=== PATIENT | female | born 1975 | race Caucasian/White ===

== ENCOUNTER 2016-12-05 11:54 | Emergency (ER) | payer OTHER ==
[~2016-12-05] VITALS: Ht 160 cm; Wt 9.9 kg
[~2016-12-05 11:54] MED LIST: FLUO20CA38 PO; GABA100C14 PO; QUET100T32 PO
[2016-12-05 11:57] VITALS: Ht 160 cm; Wt 9.9 kg
--- NOTE | 2016-12-05 14:22 | ERD ---
ER Documentation Chief Complaint Date/Time DATE: 12/05/16 TIME: 14:15 Chief Complaint FLU X 1 WEEK HPI 41-year-old female with a history of depression and anxiety presents to the emergency department for a one-week history of productive cough with phlegm as well as bilateral eye drainage and discharge. Patient states that when she wakes up in the morning she experiences crusting of bilateral eyes but denies any blurry vision. Patient states she has been out in the cold recently. Patient denies fever, vomiting, nausea, diarrhea, abdominal pain, headache, dizziness shortness of breath, or chest pain. ROS All systems reviewed and are negative except as per history of present illness. Medications Home Meds Reported Medications Quetiapine Fumarate* (Quetiapine Fumarate*) 100 Mg Tablet, 100 MG PO HS, TAB 03/28/16 Gabapentin* (Gabapentin*) 100 Mg Capsule, 100 MG PO BID, #90 CAP 03/28/16 Fluoxetine Hcl* (Prozac*) 20 Mg Capsule, 60 MG PO DAILY, CAP 03/28/16 Allergies Allergies: Coded Allergies: No Known Drug Allergies (Verified Allergy, Mild, 09/24/15) PMhx/Soc History of Surgery: Yes (c/section x2) Anesthesia Reaction: No Hx Neurological Disorder: No Hx Respiratory Disorders: No Hx Cardiac Disorders: No Hx Psychiatric Problems: Yes (depression, anxiety) Hx Miscellaneous Medical Probl: Yes (INSOMNIA) Hx Alcohol Use: No Hx Substance Use: No Hx Tobacco Use: No Physical Exam Vitals Vital Signs Date Time Temp Pulse Resp B/P Pulse Ox O2 Delivery O2 Flow Rate FiO2 12/05/16 11:57 99.2 99 18 139/67 90 Physical Exam Const: Well-developed, well-nourished, in no acute distress Head: Atraumatic Eyes: Normal Conjunctiva ENT: Normal External Ears, Nose and Mouth. Oropharynx clear without evidence of erythema or tonsillar swelling with exudate Neck: Full range of motion..~ No meningismus. Resp: Clear to auscultation bilaterally. No wheezes, rhonchi, rales Cardio: Regular rate and rhythm, no murmurs Abd: Soft, non tender, non distended. Normal bowel sounds Skin: No petechiae or rashes Back: No midline or flank tenderness Ext: No cyanosis, or edema Neur: Awake and alert Psych: Normal Mood and Affect Procedures/MDM 41-year-old female with history of anxiety and depression presents the emergency department with 1 week long history of productive cough, congestion, and bilateral eye discharge and crusting. Patient nontoxic-appearing, alert, afebrile, normotensive, and well-appearing during exam. The patient's clinical presentation is very consistent with an acute viral syndrome. The patient does not exhibit any clinical signs or symptoms concerning for serious bacterial infection or systemic illness. Based on history and clinical exam findings the patient does not appear to have evidence of pneumonia, strep pharyngitis, urinary tract infection, bacteremia, sepsis, or meningitis. For these reasons I do not believe it is necessary to obtain laboratory testing or diagnostic imaging. I believe it would be appropriate for symptom control, and close outpatient primary care follow-up. Based on patient's history of present illness and physical examination the decision was made to discharge. The patient was re-evaluated after ED treatment and stabilizing measures, and symptoms have improved. There is no evidence of life threatening injuries or illnesses at this time. On re-examination, patient resting in no distress, stable vital signs, reports feeling better and safe for discharge with outpatient follow up with PMD in 1-2 days. Patient given return precautions. Departure Diagnosis: Primary Impression: Influenza-like symptoms Additional Impressions: Bronchitis Cough Eye discharge SHELIA ROSS PA-C Dec 05, 2016 14:22
[2016-12-05] MEDS ORDERED: POLY10DR19 BOTH EYES (14:24)
[2016-12-05] MEDS ORDERED: AZIT250T94 PO (14:24)
[2016-12-05] MEDS ORDERED: IBUP-1542 PO (14:24)
[2016-12-05] MEDS ORDERED: D-ME473S18 PO (14:24)
== END 2016-12-05 14:28 | disposition home or self-care (01) ==
LOC: E/R 11:54
DX: R05 Cough (principal); R09.81 Nasal congestion; J20.9 Acute bronchitis, unspecified; F41.9 Anxiety disorder, unspecified; H57.8 Other specified disorders of eye and adnexa
CPT/HCPCS: 99284

== ENCOUNTER 2017-03-14 21:19 | Emergency (ER) | payer OTHER ==
[~2017-03-14] VITALS: Ht 165.1 cm; Wt 105.5 kg
[~2017-03-14 21:19] MED LIST changes: +AZIT250T94 PO; +D-ME473S18 PO; +IBUP-1542 PO; +POLY10DR19 BOTH EYES
[2017-03-14 21:25] VITALS: Ht 165.1 cm; Wt 105.5 kg
--- NOTE | 2017-03-14 21:45 | ERD ---
ER Documentation Chief Complaint Date/Time DATE: 03/14/17 TIME: 21:44 Chief Complaint NEEDS PROZAC REFILL HPI This is a 41-year-old female who presents to the emergency room for evaluation of a medication refill. The patient states that she takes Prozac 20 mg 3 times daily and states that she has been out of it for 3 days. She denies any homicidal or suicidal ideation came to the ER for evaluation. She states that she cannot get into her clinic and time and when she normally does not have her medications she begins to behave bizarrely. ROS All systems reviewed and are negative except as per history of present illness. Medications Home Meds Active Scripts Azithromycin* (Zithromax*) 250 Mg Tablet, 250 MG PO .MelissaPACK DIRECTED, #6 TAB TAKE 500 MG (2 TABS) THE FIRST DAY THEN 250 MG (1 TAB) DAYS 2-5 Prov:SHELIA ROSS PA-C 12/05/16 Polymyxin B Sulfate-TMP* (Polymyxin B-TMP Eye Drops*) 10 Ml Drops, 1 DROP BOTH EYES TID for 7 Days, EA Prov:SHELIA ROSS PA-C 12/05/16 Ibuprofen* (Ibuprofen*) 600 Mg Tablet, 600 MG PO Q6 for 7 Days, TAB Prov:SHELIA ROSS PA-C 12/05/16 Dextromethorphan Hb-Promethazine Hcl (Promethazine DM Syrup) 473 Ml Syrup, 5 ML PO Q6H Y for COUGH, #4 OZ Prov:SHELIA ROSS PA-C 12/05/16 Reported Medications Quetiapine Fumarate* (Quetiapine Fumarate*) 100 Mg Tablet, 100 MG PO HS, TAB 03/28/16 Gabapentin* (Gabapentin*) 100 Mg Capsule, 100 MG PO BID, #90 CAP 03/28/16 Fluoxetine Hcl* (Prozac*) 20 Mg Capsule, 60 MG PO DAILY, CAP 03/28/16 Allergies Allergies: Coded Allergies: No Known Drug Allergies (Verified Allergy, Mild, 09/24/15) PMhx/Soc History of Surgery: Yes (c/section x2) Anesthesia Reaction: No Hx Neurological Disorder: No Hx Respiratory Disorders: No Hx Cardiac Disorders: No Hx Psychiatric Problems: Yes (depression, anxiety) Hx Miscellaneous Medical Probl: Yes (INSOMNIA) Hx Alcohol Use: No Hx Substance Use: No Hx Tobacco Use: No Physical Exam Vitals Vital Signs Date Time Temp Pulse Resp B/P Pulse Ox O2 Delivery O2 Flow Rate FiO2 03/14/17 21:25 98.6 85 20 180/101 99 Physical Exam Const: Disheveled appearance Head: Atraumatic Eyes: Normal Conjunctiva ENT: Normal External Ears, Nose and Mouth. Neck: Full range of motion..~ No meningismus. Resp: Clear to auscultation bilaterally Cardio: Regular rate and rhythm, no murmurs Abd: Soft, non tender, non distended. Normal bowel sounds Skin: No petechiae or rashes Back: No midline or flank tenderness Ext: No cyanosis, or edema Neur: Awake and alert Psych: Normal Mood and Affect Procedures/MDM This 41-year-old female presents to the ER for medication refill of her Prozac. The patient denies any homicidal suicidal ideation. When I evaluated her the patient was hypertensive however she is denying headache, blurred vision, chest pain, shortness of breath numbness or tingling. The patient was given a prescription for Prozac 20 mg 3 times daily for 1 month. I advised her to follow-up with her primary care for further evaluation and she verbalized understanding. Departure Diagnosis: Primary Impression: Asymptomatic hypertension Additional Impression: Encounter for medication refill Condition: Stable REJI LOCO DO Mar 14, 2017 21:45
[2017-03-14] MEDS ORDERED: FLUO20CA38 PO (21:46)
[2017-03-14 22:01] VITALS: BP 143/101; PULSE 72; RESP 20; TEMP 98.2
== END 2017-03-14 22:02 | disposition home or self-care (01) ==
LOC: E/R 21:19
DX: I10 Essential (primary) hypertension (principal)
CPT/HCPCS: 99281

== ENCOUNTER 2017-05-24 16:06 | Emergency (ER) | payer OTHER ==
[~2017-05-24] VITALS: Ht 152.4 cm; Wt 101.0 kg
[2017-05-24 16:10] VITALS: Ht 152.4 cm; Wt 101.0 kg
[2017-05-24] MEDS ORDERED: GABA100C14 PO (17:09)
[2017-05-24] MEDS ORDERED: FLUO20CA38 PO (17:09)
--- NOTE | 2017-05-24 17:14 | ERA ---
ER Documentation Chief Complaint Date/Time DATE: 05/24/17 TIME: 17:11 Chief Complaint REFILL OF PROZAC, GABAPENTIN HPI 41-year-old female presented with a chief complaint of presenting requesting refill on medication of Prozac 20 mg twice daily and gabapentin unknown. Review of patient's charts revealed Prozac 20 mg twice daily and gabapentin 100 mg 3 times daily. Patient has had no adverse reactions with the medications. States that her next appointment with her PCP is an 1 month. Patient is also stated that she comes here "all the time" for refill on medications. No other complaints at this time. Describes no other associated manifestations. Nursing notes have been reviewed and are consistent with history given. ROS All systems reviewed and are negative except as per history of present illness. Medications Home Meds Active Scripts Fluoxetine Hcl* (Prozac*) 20 Mg Capsule, 20 MG PO DAILY for 10 Days, CAP Prov:NADEEN MARTINEZ PA-C 05/24/17 Gabapentin* (Gabapentin*) 100 Mg Capsule, 100 MG PO TID for 10 Days, #30 CAP Prov:NADEEN MARTINEZ PA-C 05/24/17 Fluoxetine Hcl* (Prozac*) 20 Mg Capsule, 20 MG PO BID for 30 Days, CAP Prov:REJI LOCO DO 03/14/17 Azithromycin* (Zithromax*) 250 Mg Tablet, 250 MG PO .MOOCK DIRECTED, #6 TAB TAKE 500 MG (2 TABS) THE FIRST DAY THEN 250 MG (1 TAB) DAYS 2-5 Prov:SHELIA ROSS PA-C 12/05/16 Polymyxin B Sulfate-TMP* (Polymyxin B-TMP Eye Drops*) 10 Ml Drops, 1 DROP BOTH EYES TID for 7 Days, EA Prov:SHELIA ROSS PA-C 12/05/16 Ibuprofen* (Ibuprofen*) 600 Mg Tablet, 600 MG PO Q6 for 7 Days, TAB Prov:SHELIA ROSS PA-C 12/05/16 Dextromethorphan Hb-Promethazine Hcl (Promethazine DM Syrup) 473 Ml Syrup, 5 ML PO Q6H Y for COUGH, #4 OZ Prov:SHELIA ROSS PA-C 12/05/16 Reported Medications Quetiapine Fumarate* (Quetiapine Fumarate*) 100 Mg Tablet, 100 MG PO HS, TAB 03/28/16 Gabapentin* (Gabapentin*) 100 Mg Capsule, 100 MG PO BID, #90 CAP 03/28/16 Fluoxetine Hcl* (Prozac*) 20 Mg Capsule, 60 MG PO DAILY, CAP 03/28/16 Allergies Allergies: Coded Allergies: No Known Drug Allergies (Verified Allergy, Mild, 09/24/15) PMhx/Soc History of Surgery: Yes (c/section x2) Anesthesia Reaction: No Hx Neurological Disorder: No Hx Respiratory Disorders: No Hx Cardiac Disorders: No Hx Psychiatric Problems: Yes (depression, anxiety) Hx Miscellaneous Medical Probl: Yes (INSOMNIA) Hx Alcohol Use: No Hx Substance Use: No Hx Tobacco Use: No Smoking Status: Never smoker Physical Exam Vitals Vital Signs Date Time Temp Pulse Resp B/P Pulse Ox O2 Delivery O2 Flow Rate FiO2 05/24/17 16:10 98.4 90 18 135/69 99 Physical Exam Const: Morbidly obese 41-year-old female in no acute distress Head: Atraumatic Eyes: Normal Conjunctiva ENT: Normal External Ears, Nose and Mouth. Neck: Full range of motion..~ No meningismus. Resp: Clear to auscultation bilaterally Cardio: Regular rate and rhythm, no murmurs Abd: Soft, non tender, non distended. Normal bowel sounds Skin: No petechiae or rashes Back: No midline or flank tenderness Ext: No cyanosis, or edema Neur: Awake and alert Psych: Normal Mood and Affect Procedures/MDM 41-year-old female presenting with a chief complaint of with a request for medication refill. Patient is taking Prozac 20 mg twice daily and gabapentin 100 mg 3 times daily. Patient will be given 10 days worth of prescriptions with advised to go to PCP for refill on medications. I expect that the patient that this is not the function of the emergency department. She has verbally acknowledged but also has responded that she comes here "all the time" for refill on medications. I have given the patient a list of community clinics that she may go to for chronic management of conditions. I have spoke with the patient regarding their condition and future management. They have verbally responded that they understand their status and treatment plan. The patients vitals are stable, and their current condition is appropriate for discharge. The patient will be given discharge instructions with return precautions. Departure Diagnosis: Primary Impression: Encounter for medication refill Condition: Stable Patient Instructions: Taking Medicine Safely Referrals: [facility] YOU HAVE RECEIVED A MEDICAL SCREENING EXAM AND THE RESULTS INDICATE THAT YOU DO NOT HAVE A CONDITION THAT REQUIRES URGENT TREATMENT IN THE EMERGENCY DEPARTMENT. FURTHER EVALUATION AND TREATMENT OF YOUR CONDITION CAN WAIT UNTIL YOU ARE SEEN IN YOUR DOCTORS OFFICE WITHIN THE NEXT 1-2 DAYS. IT IS YOUR RESPONSIBILITY TO MAKE AN APPOINTMENT FOR FOLOW-UP CARE. IF YOU HAVE A PRIMARY DOCTOR --you should call your primary doctor and schedule an appointment IF YOU DO NOT HAVE A PRIMARY DOCTOR YOU CAN CALL OUR PHYSICIAN REFERRAL HOTLINE AT IF YOU CAN NOT AFFORD TO SEE A PHYSICIAN YOU CAN CHOSE FROM THE FOLLOWING [facility] [address] [facility]. [facility] [address] [facility]. [facility] [address] [facility] [address] [facility] [address] [facility]. [facility]. [address] [facility] () Usted se del rio hecho un examen mdico de control que le indica que no est en coco condicin que requiera tratamiento urgente en el Departamento de Emergencia. Un estudio ms profundo y el tratamiento de barrera condicin pueden esperar sin ningn riesgo hasta que usted sea atendida/o en el consultorio de barrera mdico o coco cl fanny. Es responsabilidad suya arreglar coco shima para el seguimiento del dawson. MANEJO DE CONDICIONES NO URGENTES EN EL FUTURO 1) Si usted tiene un mdico de atencin primaria: Usted debera llamar a barrera mdico de atencin primaria antes de venir al departamento de emergencia. Despus de las horas de consultorio, barrera doctor o barrera asociado/a est disponible por telfono. El mdico o enfermero de dom en el servicio telefnico puede asesorarle por kwesi medio para atender el problema, o dawson contrario se puede programar coco shima. 2) Si usted no tiene un mdico de atencin primaria: Llame al mdico o clnica de referencia que aparece abajo linda las horas de consultorio para hacer coco shima para que le vean. CLINICAS: [facility] [phone] [address] [facility]., [facility] [phone] [address] [facility]. [facility] [phone] [address] [facility] [phone] [address] [facility] [facility] [phone] [address] [facility]. [phone] [address] Additional Instructions: Go to PCP for medication refill. Symptoms worsen or change return to the emergency department immediately. If adverse reactions arise discontinue medications and return to the emergency department immediately. Take medications as prescribed. NADEEN MARTINEZ PA-C May 24, 2017 17:13
== END 2017-05-24 17:20 | disposition home or self-care (01) ==
LOC: FTE 16:06
DX: Z76.0 Encounter for issue of repeat prescription (principal)
CPT/HCPCS: 99281

== ENCOUNTER 2017-06-27 01:49 | Emergency (ER) | payer OTHER ==
[~2017-06-27] VITALS: Ht 167.6 cm; Wt 98.5 kg
[2017-06-27 01:56] VITALS: Ht 167.6 cm; Wt 98.5 kg
[2017-06-27] MEDS ORDERED: FLUO20CA38 PO (02:56)
[2017-06-27] MEDS ORDERED: GABA300C16 PO (02:56)
--- NOTE | 2017-06-27 02:58 | ERD ---
ER Documentation Chief Complaint Date/Time DATE: 06/27/17 TIME: 02:58 Chief Complaint medication refill- prozac, gabapentin HPI Patient is here requesting medication refill on gabapentin as well as Prozac. She has no suicidal homicidal ideations. She has no other complaints. ROS All systems reviewed and are negative except as per history of present illness. Medications Home Meds Active Scripts Fluoxetine Hcl* (Prozac*) 20 Mg Capsule, 60 MG PO DAILY for 30 Days, CAP Prov:ABENA TRUJILLO PA-C 06/27/17 Gabapentin* (Gabapentin*) 300 Mg Capsule, 300 MG PO QHS, #30 CAP Prov:ABENA TRUJILLO PA-C 06/27/17 Fluoxetine Hcl* (Prozac*) 20 Mg Capsule, 20 MG PO DAILY for 10 Days, CAP Prov:NADEEN MARTINEZ PA-C 05/24/17 Gabapentin* (Gabapentin*) 100 Mg Capsule, 100 MG PO TID for 10 Days, #30 CAP Prov:NADEEN MARTINEZ PA-C 05/24/17 Fluoxetine Hcl* (Prozac*) 20 Mg Capsule, 20 MG PO BID for 30 Days, CAP Prov:REJI LOCO DO 03/14/17 Azithromycin* (Zithromax*) 250 Mg Tablet, 250 MG PO .GANESH DIRECTED, #6 TAB TAKE 500 MG (2 TABS) THE FIRST DAY THEN 250 MG (1 TAB) DAYS 2-5 Prov:SHELIA ROSS PA-C 12/05/16 Polymyxin B Sulfate-TMP* (Polymyxin B-TMP Eye Drops*) 10 Ml Drops, 1 DROP BOTH EYES TID for 7 Days, EA Prov:SHELIA ROSS PA-C 12/05/16 Ibuprofen* (Ibuprofen*) 600 Mg Tablet, 600 MG PO Q6 for 7 Days, TAB Prov:SHELIA ROSS PA-C 12/05/16 Dextromethorphan Hb-Promethazine Hcl (Promethazine DM Syrup) 473 Ml Syrup, 5 ML PO Q6H Y for COUGH, #4 OZ Prov:SHELIA ROSS PA-C 12/05/16 Reported Medications Quetiapine Fumarate* (Quetiapine Fumarate*) 100 Mg Tablet, 100 MG PO HS, TAB 03/28/16 Gabapentin* (Gabapentin*) 100 Mg Capsule, 100 MG PO BID, #90 CAP 03/28/16 Fluoxetine Hcl* (Prozac*) 20 Mg Capsule, 60 MG PO DAILY, CAP 03/28/16 Allergies Allergies: Coded Allergies: No Known Drug Allergies (Verified Allergy, Mild, 09/24/15) PMhx/Soc History of Surgery: Yes (c/section x2) Anesthesia Reaction: No Hx Neurological Disorder: No Hx Respiratory Disorders: No Hx Cardiac Disorders: No Hx Psychiatric Problems: Yes (depression, anxiety) Hx Miscellaneous Medical Probl: Yes (INSOMNIA) Hx Alcohol Use: No Hx Substance Use: No Hx Tobacco Use: No Smoking Status: Never smoker FmHx Family History: No diabetes Physical Exam Vitals Vital Signs Date Time Temp Pulse Resp B/P Pulse Ox O2 Delivery O2 Flow Rate FiO2 06/27/17 01:56 97.8 72 20 128/74 100 Physical Exam Const: [] Head: Atraumatic Eyes: Normal Conjunctiva ENT: Normal External Ears, Nose and Mouth. Neck: Full range of motion..~ No meningismus. Resp: Clear to auscultation bilaterally Cardio: Regular rate and rhythm, no murmurs Procedures/MDM Patient is here requesting medication refill. She was given a refill as well as list of community clinics she can follow-up with. Patient counseled regarding my diagnostic impression and care plan. Prior to discharge all questions answered. Pt agrees with treatment plan and understands strict return precautions. Pt is instructed to follow up with primary care provider within 24- 48 hours. Precautionary instructions provided including instructions to return to the ER if not improving or for any worsening or changing symptoms or concerns. Departure Diagnosis: Primary Impression: Encounter for medication refill Condition: Stable Patient Instructions: Taking Medicine Safely Referrals: [facility] YOU HAVE RECEIVED A MEDICAL SCREENING EXAM AND THE RESULTS INDICATE THAT YOU DO NOT HAVE A CONDITION THAT REQUIRES URGENT TREATMENT IN THE EMERGENCY DEPARTMENT. FURTHER EVALUATION AND TREATMENT OF YOUR CONDITION CAN WAIT UNTIL YOU ARE SEEN IN YOUR DOCTORS OFFICE WITHIN THE NEXT 1-2 DAYS. IT IS YOUR RESPONSIBILITY TO MAKE AN APPOINTMENT FOR FOLOW-UP CARE. IF YOU HAVE A PRIMARY DOCTOR --you should call your primary doctor and schedule an appointment IF YOU DO NOT HAVE A PRIMARY DOCTOR YOU CAN CALL OUR PHYSICIAN REFERRAL HOTLINE AT IF YOU CAN NOT AFFORD TO SEE A PHYSICIAN YOU CAN CHOSE FROM THE FOLLOWING [facility] CLINICS [facility] [address] [facility] [address] [facility]. [facility] [address] [facility] [address] [facility] [phone] [address] [facility]. [facility] [address] Additional Instructions: Call your primary care doctor TOMORROW for an appointment during the next 1-2 days.See the doctor sooner or return here if your condition worsens before your appointment time. ABENA TRUJILLO PA-C Jun 27, 2017 02:58
== END 2017-06-27 03:05 | disposition home or self-care (01) ==
LOC: FTE 01:49
DX: Z76.0 Encounter for issue of repeat prescription (principal)
CPT/HCPCS: 99281

== ENCOUNTER 2017-09-01 16:00 | Emergency (ER) | payer OTHER ==
[~2017-09-01] VITALS: Wt 97.7 kg
[~2017-09-01 16:00] MED LIST changes: +GABA300C16 PO
--- NOTE | 2017-09-01 19:26 | ERD ---
ER Documentation Chief Complaint Chief Complaint PT HERE FOR MED REFILL HPI 41 years old female, with history of anxiety well controlled with Prozac 60 mg a day and gabapentin 300 mg per day, presents to the emergency department requesting a refill for her medications. Refers good compliance, no side effects. Denies SI/HI. ROS All systems reviewed and are negative except as per history of present illness. Medications Home Meds Active Scripts Gabapentin* (Gabapentin*) 300 Mg Capsule, 300 MG PO QHS, #30 CAP 3 Refills Prov:MANDEEP PARKER MD 09/01/17 Fluoxetine Hcl* (Fluoxetine Hcl*) 20 Mg Capsule, 60 MG PO DAILY for 30 Days, CAP 3 Refills Prov:MANDEEP PARKER MD 09/01/17 Fluoxetine Hcl* (Prozac*) 20 Mg Capsule, 60 MG PO DAILY for 30 Days, CAP Prov:ABENA TRUJILLO PA-C 06/27/17 Gabapentin* (Gabapentin*) 300 Mg Capsule, 300 MG PO QHS, #30 CAP Prov:ABENA TRUJILLO PA-C 06/27/17 Fluoxetine Hcl* (Prozac*) 20 Mg Capsule, 20 MG PO DAILY for 10 Days, CAP Prov:NADEEN MARTINEZ PA-C 05/24/17 Gabapentin* (Gabapentin*) 100 Mg Capsule, 100 MG PO TID for 10 Days, #30 CAP Prov:NADEEN MARTINEZ PA-C 05/24/17 Fluoxetine Hcl* (Prozac*) 20 Mg Capsule, 20 MG PO BID for 30 Days, CAP Prov:REJI LOCO DO 03/14/17 Azithromycin* (Zithromax*) 250 Mg Tablet, 250 MG PO .GANESH DIRECTED, #6 TAB TAKE 500 MG (2 TABS) THE FIRST DAY THEN 250 MG (1 TAB) DAYS 2-5 Prov:SHELIA ROSS PA-C 12/05/16 Polymyxin B Sulfate-TMP* (Polymyxin B-TMP Eye Drops*) 10 Ml Drops, 1 DROP BOTH EYES TID for 7 Days, EA Prov:SHELIA ROSS PA-C 12/05/16 Ibuprofen* (Ibuprofen*) 600 Mg Tablet, 600 MG PO Q6 for 7 Days, TAB Prov:SHELIA ROSS PA-C 12/05/16 Dextromethorphan Hb-Promethazine Hcl (Promethazine DM Syrup) 473 Ml Syrup, 5 ML PO Q6H Y for COUGH, #4 OZ Prov:SHELIA ROSS PA-C 12/05/16 Reported Medications Quetiapine Fumarate* (Quetiapine Fumarate*) 100 Mg Tablet, 100 MG PO HS, TAB 03/28/16 Gabapentin* (Gabapentin*) 100 Mg Capsule, 100 MG PO BID, #90 CAP 03/28/16 Fluoxetine Hcl* (Prozac*) 20 Mg Capsule, 60 MG PO DAILY, CAP 03/28/16 Allergies Allergies: Coded Allergies: No Known Drug Allergies (Verified Allergy, Mild, 09/24/15) PMhx/Soc History of Surgery: Yes (c/section x2) Anesthesia Reaction: No Hx Neurological Disorder: No Hx Respiratory Disorders: No Hx Cardiac Disorders: No Hx Psychiatric Problems: Yes (depression, anxiety) Hx Miscellaneous Medical Probl: Yes (INSOMNIA) Hx Alcohol Use: No Hx Substance Use: No Hx Tobacco Use: No Smoking Status: Never smoker Physical Exam Vitals Vital Signs Date Time Temp Pulse Resp B/P Pulse Ox O2 Delivery O2 Flow Rate FiO2 09/01/17 16:18 98.1 83 17 152/72 97 Physical Exam Patient is in no acute distress, vital signs stable. Alert and fully oriented. EYES: PERRLA, EOMI, Sclera and conjunctiva appear normal. EARS: Canals clear, tympanic membranes WNL THROAT: Normal oropharynx. NECK: Supple, No lymphadenopathy. Full ROM without pain or tenderness. HEART: RRR, no rubs, murmurs, clicks or gallops. LUNGS: Clear to auscultation. ABDOMEN: Soft, non-tender without masses or hepatosplenomegaly. EXTREMITIES: No edema bilaterally. BACK: Full ROM, no deformity, normal back exam NEURO: Cranial nerves grossly intact, no motor or sensory deficit Procedures/MDM 41-year-old female with history of anxiety presents to the emergency department requesting a refill for her medication. Vital signs stable, Physical exam unremarkable. Low suspicion for severe depression. Physical examination and clinical presentation consistent most likely with anxiety disorder. During the ED course the patient remained stable, no new complaints. Results and clinical impression discussed with patient who agrees with management. The patient is stable to be treated outpatient and will be discharged home with a Rx for fluoxetine and gabapentin, some side effects of prescribed medications (headache, rash, nausea, vomiting, diarrhea, drowsiness, habituation, bleeding, hypertension, interactions with other medications) were reviewed. The patient was instructed to follow up with the primary care provider in the next 48h. If symptoms persist, worsen or new symptoms develop, then patient should return to the ED immediately. Instructions explained and given directly by me to the patient in Korean with acknowledgment and demonstrated understanding. Disclaimer: Inadvertent spelling and grammatical errors are likely due to EHR/ dictation software use and do not reflect on the overall quality of patient care. Also, please note that the electronic time recorded on this note does not necessarily reflect the actual time of the patient encounter. Departure Diagnosis: Primary Impression: Anxiety Additional Impression: Encounter for medication refill Condition: Stable Additional Instructions: Call your primary care doctor TOMORROW for an appointment during the next 1-2 days. See the doctor sooner or return here if your condition worsens before your appointment time. Thank you very much for allowing us to participate in your care. Your health and safety is our top priority at [facility]. Have prescriptions filled and follow precisely the directions on the label. Follow-up with primary care provider during the next 4 days and bring all the information and medications prescribed. If illness has not improved in 2 days, then make an appointment with primary care provider. If the provider is unavailable, return to the Emergency Department immediately. MANDEEP PARKER MD Sep 01, 2017 19:26
[2017-09-01] MEDS ORDERED: FLUO20CA22 PO (19:27)
[2017-09-01] MEDS ORDERED: GABA300C16 PO (19:27)
== END 2017-09-01 19:35 | disposition home or self-care (01) ==
LOC: FTE 16:00
DX: F41.9 Anxiety disorder, unspecified (principal)
CPT/HCPCS: 99281